=== PATIENT | male | born 1995 | race African-American/Black ===

== ENCOUNTER 2017-03-19 11:16 | Emergency (ER) | payer MEDICAID ==
[~2017-03-19] VITALS: Ht 170.2 cm; Wt 58.0 kg
[2017-03-19 11:25] VITALS: BP 96/72
[2017-03-19] MEDS ORDERED: IPRATROPIUM BROMIDE (0.02%) 0.5MG/2.5ML NEB HHN STA (13:54)
[2017-03-19] MEDS ORDERED: ALBUTEROL (0.083%) 2.5MG/3ML NEB HHN STA (13:54)
[2017-03-19] MEDS ORDERED: METHYLPREDNISOLONE SOD SUCC 125 MG/2 ML VIAL IV STA (13:54)
[2017-03-19] MEDS ORDERED: ALBUTEROL (0.083%) 2.5MG/3ML NEB ONE (14:13)
[2017-03-19] MEDS ORDERED: IPRATROPIUM BROMIDE (0.02%) 0.5MG/2.5ML NEB ONE (14:14)
== END 2017-03-19 15:29 | disposition home or self-care (01) ==
LOC: ER 11:45
DX: R06.2 Wheezing (principal); J45.909 Unspecified asthma, uncomplicated; F12.10 Cannabis abuse, uncomplicated
CPT/HCPCS: 71045; 87804; 94640; 96374; 99285; J2930; J7611

== ENCOUNTER 2018-12-03 13:56 | Emergency (ER) | payer MEDICAID ==
[~2018-12-03] VITALS: Ht 172.7 cm; Wt 57.0 kg
[2018-12-03] MEDS ORDERED: PREDNISONE 20MG TABLET PO STA (14:48)
[2018-12-03] MEDS ORDERED: ALBUTEROL (0.083%) 2.5MG/3ML NEB HHN STA (14:48)
[2018-12-03 15:50] VITALS: BP 119/66
== END 2018-12-03 16:05 | disposition home or self-care (01) ==
LOC: ER 14:09
DX: J45.901 Unspecified asthma with (acute) exacerbation (principal); F17.210 Nicotine dependence, cigarettes, uncomplicated; Z71.6 Tobacco abuse counseling
CPT/HCPCS: 71045; 94640; 99283; J7512; J7611; Z7610

== ENCOUNTER 2019-06-20 19:30 | Emergency (ER) | payer MEDICAID ==
[~2019-06-20] VITALS: Ht 170.2 cm; Wt 70.0 kg
[2019-06-20] MEDS ORDERED: SODIUM CHLORIDE 0.9% 1,000 ML IV ONE (19:53)
[2019-06-20 20:22] LABS: BASOPHILS % 0.9 % (0.0-2.0); EOSINOPHILS % 3.8 % (0.0-5.0); HEMATOCRIT. 45.6 % (42.0-52.0); HEMOGLOBIN. 15.4 g/dL (14.0-18.0); LYMPHOCYTES % 32.2 % (20.0-50.0); MEAN CORPUSCULAR HEMOGLOBIN 30.4 pg (28.0-32.0); MEAN CORPUSCULAR VOLUME 90.1 fL (80.0-94.0); MEAN PLATELET VOLUME 8.3 fl (7.4-10.4); MONOCYTES % 10.6 % (2.0-8.0); NEUTROPHILS % 52.5 % (40.0-76.0); PLATELET 223 x1000/uL (130-400); RED BLOOD CELL COUNT 5.07 mill/uL (4.7-6.1); RED CELL DISTRIBUTION WIDTH 13.9 % (11.6-14.6)
[2019-06-20 20:31] LABS: INR 1.1; PROTHROMBIN TIME 11.5 sec (9.6-11.0)
[2019-06-20 20:36] LABS: CHLORIDE 103 mEq/L (98-107)
[2019-06-20 20:40] LABS: ETHANOL BLOOD < 10 mg/dL
[2019-06-20 20:44] LABS: CREATINE KINASE 226 IU/L (39-308)
[2019-06-20 20:46] LABS: BG BASE EXCESS -2.4 mmol/L (-2.0-2.0); BG CARBOXYHEMOGLOBIN 3.1 % (0.5-1.5); BG DEOXYHEMOGLOBIN 3.5 % (0.0-5.0); BG FRACTION INSPIRED OXYGEN 21; BG HCO3 ACT 20.9 mmol/L (22.0-26.0); BG METHEMOGLOBIN 0.2 % (0.0-1.5); BG OXYGEN SATURATION 96.4 % (92.0-98.5); BG OXYHEMOGLOBIN 93.2 % (94.0-97.0); BG PCO2 31.8 mmHg (35.0-45.0); BG PH 7.435 (7.350-7.450); BG PO2 90.1 mmHg (75.0-100.0); BG SAMPLE SITE LEFT RADIAL; BG VENT MODE ROOM AIR
[2019-06-20 22:16] LABS: CLARITY URINE CLEAR (CLEAR); COLOR URINE DARK YELLOW (YELLOW); KETONES URINE 1+ (NEGATIVE); LEUKOCYTE ESTERASE URINE TRACE (NEGATIVE); NITRITE URINE NEGATIVE (NEGATIVE); OCCULT BLOOD URINE NEGATIVE (NEGATIVE); PH URINE 6.5 (4.5-8.0); PROTEIN URINE 2+ (NEGATIVE); SPECIFIC GRAVITY URINE 1.029 (1.005-1.030)
[2019-06-20 22:30] LABS: *AMPHETAMINES SCREEN URINE NEGATIVE (NEGATIVE); *BARBITURATES SCREEN URINE NEGATIVE (NEGATIVE); *BENZODIAZEPINES SCREEN URINE NEGATIVE (NEGATIVE); *COCAINE SCREEN URINE NEGATIVE (NEGATIVE); METHADONE URINE SCREEN NEGATIVE (NEGATIVE)
[2019-06-20 22:31] LABS: CANNABINOID URINE SCREEN PRESUMTIVE POSITIVE (NEGATIVE); OPIATES URINE SCREEN NEGATIVE (NEGATIVE); PHENCYCLIDINE URINE SCREEN NEGATIVE (NEGATIVE)
[2019-06-20] MEDS ORDERED: CEFTRIAXONE 1 G PREMIX 50 ML IV ONE (22:45)
[2019-06-21 00:15] VITALS: BP 107/63
== END 2019-06-21 00:50 | disposition home or self-care (01) ==
LOC: ER 19:30
DX: F12.188 Cannabis abuse with other cannabis-induced disorder (principal); N39.0 Urinary tract infection, site not specified; G93.41 Metabolic encephalopathy
CPT/HCPCS: 36415; 36600; 70450; 71045; 80053; 80305; 80307; 80320; 80329; 81003; 82140; 82375; 82550; 82805; 83690; 83880; 84443; 84484; 85025; 85610; 86850; 86900; 86901; 93005; 96361; 96365; 99285; J0696; J7030; G0480

== ENCOUNTER 2020-07-16 19:43 | Emergency (ER) | payer MEDICAID ==
[~2020-07-16] VITALS: Ht 167.6 cm; Wt 55.0 kg
[2020-07-16 19:45] VITALS: BP 110/67
== END 2020-07-16 23:10 | disposition left against medical advice (07) ==
LOC: ER 19:43
DX: R68.84 Jaw pain (principal); F12.10 Cannabis abuse, uncomplicated; J45.909 Unspecified asthma, uncomplicated
CPT/HCPCS: 99281

== ENCOUNTER 2021-01-23 09:11 | Inpatient (IN) | payer MEDICARE ==
[~2021-01-23] VITALS: Ht 160 cm; Wt 64.0 kg
[2021-01-23] MEDS ORDERED: LEVETIRACETAM 1000MG PREMIX 100 ML IV ONE (09:30)
[2021-01-23 09:33] LABS: BASOPHILS % 0.5 % (0.0-2.0); EOSINOPHILS % 0.3 % (0.0-5.0); HEMOGLOBIN. 13.3 g/dL (14.0-18.0); LYMPHOCYTES % 7.2 % (20.0-50.0); MEAN CORPUSCULAR HEMOGLOBIN 29.8 pg (28.0-32.0); MEAN CORPUSCULAR VOLUME 92.2 fL (80.0-94.0); MEAN PLATELET VOLUME 7.7 fl (7.4-10.4); MONOCYTES % 3.9 % (2.0-8.0); NEUTROPHILS % 88.1 % (40.0-76.0); PLATELET 247 x1000/uL (130-400); RED BLOOD CELL COUNT 4.45 mill/uL (4.7-6.1); RED CELL DISTRIBUTION WIDTH 14.8 % (11.6-14.6)
[2021-01-23 09:41] LABS: CHLORIDE 105 mEq/L (98-107)
[2021-01-23 09:44] LABS: ETHANOL BLOOD < 10 mg/dL
[2021-01-23 10:56] LABS: CLARITY URINE CLOUDY (CLEAR); COLOR URINE YELLOW (YELLOW); KETONES URINE TRACE (NEGATIVE); LEUKOCYTE ESTERASE URINE NEGATIVE (NEGATIVE); NITRITE URINE NEGATIVE (NEGATIVE); OCCULT BLOOD URINE 1+ (NEGATIVE); PROTEIN URINE 1+ (NEGATIVE); SPECIFIC GRAVITY URINE 1.019 (1.005-1.030); UROBILINOGEN URINE 0.2 E.U./dL (0.2-1.0)
[2021-01-23 11:07] LABS: *AMPHETAMINES SCREEN URINE NEGATIVE (NEGATIVE); *BARBITURATES SCREEN URINE NEGATIVE (NEGATIVE); *BENZODIAZEPINES SCREEN URINE NEGATIVE (NEGATIVE); *COCAINE SCREEN URINE NEGATIVE (NEGATIVE); CANNABINOID URINE SCREEN PRESUMTIVE POSITIVE (NEGATIVE); METHADONE URINE SCREEN NEGATIVE (NEGATIVE); OPIATES URINE SCREEN NEGATIVE (NEGATIVE); PHENCYCLIDINE URINE SCREEN NEGATIVE (NEGATIVE)
[2021-01-23] MEDS: SODIUM CHLORIDE 0.45% 1,000 ML IV SCH (15:32)
[2021-01-23 23:15] VITALS: BP 107/72
[2021-01-24] MEDS ORDERED: RISP1TAB97 PO (03:37)
[2021-01-24] MEDS: SODIUM CHLORIDE 0.45% 1,000 ML IV SCH (04:33)
[2021-01-24 07:14] LABS: BASOPHILS % 0.8 % (0.0-2.0); EOSINOPHILS % 3.3 % (0.0-5.0); HEMATOCRIT. 36.8 % (42.0-52.0); HEMOGLOBIN. 12.4 g/dL (14.0-18.0); LYMPHOCYTES % 27.5 % (20.0-50.0); MEAN CORPUSCULAR HEMOGLOBIN 30.2 pg (28.0-32.0); MEAN CORPUSCULAR VOLUME 89.9 fL (80.0-94.0); MEAN PLATELET VOLUME 8.3 fl (7.4-10.4); NEUTROPHILS % 61.4 % (40.0-76.0); PLATELET 205 x1000/uL (130-400); RED BLOOD CELL COUNT 4.09 mill/uL (4.7-6.1); RED CELL DISTRIBUTION WIDTH 14.5 % (11.6-14.6)
[2021-01-24 07:27] LABS: CHLORIDE 106 mEq/L (98-107)
[2021-01-24 08:00] VITALS: BP 93/56
[2021-01-24] MEDS ORDERED: LEVETIRACETAM 500MG TABLET PO SCH (09:00)
[2021-01-24] MEDS ORDERED: MAGNESIUM OXIDE 400MG TABLET PO SCH (09:30)
[2021-01-24 12:00] VITALS: BP 100/62
[2021-01-24] MEDS ORDERED: KEPP500 MT (13:25)
[2021-01-24 16:00] VITALS: BP 112/74
== END 2021-01-24 16:50 | disposition home or self-care (01) | DRG 53 ==
LOC: ER 09:16 → 8WST 14:17 → EDBEDREQ 15:32 → EDBEDREQTM 15:32 → ENRESERV 20:12
PROVIDERS: ADMIT Internal Medicine; ATTEND Internal Medicine
PROC: 4A10X4Z Monitoring of Central Nervous Electrical Activity, External Approach (ICD-10-PCS; principal; 2021-01-24)
DX: G40.89 Other seizures (principal); E83.42 Hypomagnesemia; E86.0 Dehydration; R00.0 Tachycardia, unspecified; R79.89 Other specified abnormal findings of blood chemistry; F41.9 Anxiety disorder, unspecified; Z87.820 Personal history of traumatic brain injury; Z91.013 Allergy to seafood
CPT/HCPCS: 36415; 71045; 80048; 80053; 80305; 80320; 81003; 82962; 83735; 84443; 84484; 85025; 93005; 93306; 99285; J1953; G0480

== ENCOUNTER 2023-01-31 15:56 | Emergency (ER) | payer MEDICARE, OTHER ==
[~2023-01-31] VITALS: Ht 175.3 cm; Wt 68.0 kg
[~2023-01-31 15:56] MED LIST: KEPP500 MT; RISP1TAB97 PO
[2023-01-31 16:03] VITALS: BP 113/68; PULSE 115; RESP 20; TEMP 98.7; O2SAT 98
[2023-01-31] MEDS ORDERED: FLUORESCEIN SODIUM 1MG/STRIP LEFTEYE ONE (16:45)
[2023-01-31] MEDS ORDERED: TETRACAINE 0.5% OPHTH DROPS 4ML LEFTEYE ONE (16:45)
== END 2023-01-31 21:44 | disposition left against medical advice (07) ==
LOC: ER 15:56
DX: Z53.21 Procedure and treatment not carried out due to patient leaving prior to being seen by health care provider (principal)
CPT/HCPCS: 99281

== ENCOUNTER 2023-02-03 13:05 | Emergency (ER) | payer MEDICARE, OTHER ==
[~2023-02-03] VITALS: Ht 170.2 cm; Wt 75.0 kg
[2023-02-03 13:46] VITALS: BP 112/67; O2SAT 100
[2023-02-03] MEDS ORDERED: ERYT1OIN6 EACHEYE (17:14)
[2023-02-03 18:09] VITALS: PULSE 68; RESP 13; TEMP 97.8
== END 2023-02-03 18:10 | disposition home or self-care (01) ==
LOC: ER 14:59
DX: H10.89 Other conjunctivitis (principal)
CPT/HCPCS: 99283

== ENCOUNTER 2024-03-12 06:12 | Emergency (ER) | payer MEDICARE ==
[~2024-03-12] VITALS: Ht 167.6 cm; Wt 64.0 kg
[~2024-03-12 06:12] MED LIST changes: +ERYT1OIN6 EACHEYE; +RISP-28 PO; -RISP1TAB97 PO
[2024-03-12 06:22] VITALS: O2SAT 98
[2024-03-12] MEDS: ONDANSETRON 4MG ODT PO ONE (06:49)
[2024-03-12] MEDS: ACETAMINOPHEN 325MG TABLET PO ONE (06:49)
[2024-03-12 08:30] LABS: CHLORIDE 110 mEq/L (98-107); POTASSIUM 4.1 mEq/L (3.5-5.1); SODIUM 143 mEq/L (136-145)
[2024-03-12 08:31] LABS: BASOPHILS % 0.6 % (0.0-2.0); CARBON DIOXIDE 25 mEq/L (21-32); EOSINOPHILS % 2.5 % (0.0-5.0); HEMOGLOBIN. 13.4 g/dL (14.0-18.0); LYMPHOCYTES % 18.7 % (20.0-50.0); MEAN CORPUSCULAR HEMOGLOBIN 29.6 pg (28.0-32.0); MEAN CORPUSCULAR HGB CONC 32.8 g/dL (31.0-37.0); MEAN CORPUSCULAR VOLUME 90.2 fL (80.0-94.0); MEAN PLATELET VOLUME 8.6 fl (7.4-10.4); NEUTROPHILS % 73.2 % (40.0-76.0); PLATELET 203 x1000/uL (130-400); RED BLOOD CELL COUNT 4.54 mill/uL (4.7-6.1); RED CELL DISTRIBUTION WIDTH 14.5 % (11.6-14.6)
[2024-03-12 08:36] LABS: CREATININE 1.3 mg/dL (0.6-1.3); GLUCOSE 137 mg/dL (70-105); UREA NITROGEN BLOOD 12 mg/dL (9-23)
[2024-03-12 08:38] LABS: ALANINE AMINOTRANSFERASE 10 IU/L (10-49); ASPARTATE AMINOTRANSFERASE 17 IU/L (<34); BILIRUBIN DIRECT 0.2 mg/dL (<=3.0)
[2024-03-12 08:39] LABS: BILIRUBIN TOTAL 0.7 mg/dL (0.1-1.0); PROTEIN TOTAL 7.9 g/dL (6.0-8.3)
[2024-03-12] MEDS ORDERED: ONDA-239 PO (09:09)
[2024-03-12 10:29] VITALS: BP 127/93; PULSE 97; RESP 18; TEMP 36.33624; O2SAT 98
== END 2024-03-12 10:30 | disposition home or self-care (01) ==
LOC: ER 06:12
DX: N43.3 Hydrocele, unspecified (principal); R11.2 Nausea with vomiting, unspecified; J45.909 Unspecified asthma, uncomplicated; Z91.013 Allergy to seafood
CPT/HCPCS: 99284; 93976; 80076; 80048; 83690; 85025; 36415; 76870; Q0162